=== PATIENT | female | born 1935 | race Asian ===

== ENCOUNTER 2018-03-10 18:06 | Emergency (ER) | payer SELFPAY ==
[~2018-03-10] VITALS: Ht 152.4 cm; Wt 50.8 kg
[2018-03-10 18:19] VITALS: BP 161/78
--- NOTE | 2018-03-10 18:23 | NUR ---
PT AMBULATED TO ER BED 11
[2018-03-10] MEDS ORDERED: NACL 0.9% 1,000 ML IV ONE (18:25)
--- NOTE | 2018-03-10 18:40 | NUR ---
PATIENT PRESENTS TO ED WITH COMPLAINTS OF LEFT LOWER QUADRANT PAIN X 2 DAYS. PATIENT GRASPING AT SITE. AZERI SPEAKING ONLY, FAMILY AT BEDSIDE ABLE TO TRANSLATE. SKIN IS PINK/WARM/DRY; AAOX4 WITH EVEN AND STEADY GAIT; LUNGS CLEAR BL; HR EVEN AND REGULAR; PT DENIES ANY FEVER, CP, SOB, OR COUGH AT THIS TIME; PATIENT STATES PAIN OF 9/10 AT THIS TIME; VSS; PATIENT POSITIONED FOR COMFORT; HOB ELEVATED; BEDRAILS UP X1; BED DOWN. ER MD MADE AWARE OF PT STATUS.
[2018-03-10] MEDS ORDERED: KETOROLAC 30 MG/ML VIAL IVP ONE (18:55)
[2018-03-10] MEDS ORDERED: ONDANSETRON 4 MG/2 ML VIAL IVP ONE (18:55)
[2018-03-10 19:04] LABS: BASOPHILS # (AUTO) 0.1 K/uL (0.00-0.22); BASOPHILS % (AUTO) 0.8 % (0.0-2.0); EOSINOPHILS # (AUTO) 0.1 K/uL (0-0.4); EOSINOPHILS % (AUTO) 0.6 % (0.0-4.0); HEMATOCRIT 36.1 % (36-48); HEMOGLOBIN 12.1 g/dL (12.0-16.0); LYMPHOCYTES # (AUTO) 1.1 K/uL (2.5-16.5); LYMPHOCYTES % (AUTO) 13.6 % (20.5-51.1); MEAN CORPUSCULAR HEMOGLOBIN 29 pg (27-31); MEAN CORPUSCULAR HGB CONC 34 g/dL (33-37); MEAN CORPUSCULAR VOLUME 86.7 fL (80-94); MONOCYTES # (AUTO) 0.3 K/uL (0.8-1.0); MONOCYTES % (AUTO) 3.5 % (1.7-9.3); NEUTROPHILS # (AUTO) 6.9 K/uL (1.8-7.7); NEUTROPHILS % (AUTO) 81.5 % (42.2-75.2); PLATELET COUNT (AUTO) 251 K/uL (140-450); RED BLOOD CELL COUNT(AUTO) 4.16 MIL/uL (4.20-5.40); RED CELL DISTRIBUTION WIDTH 12.9 % (11.6-13.7); WHITE BLOOD COUNT (AUTO) 8.4 K/uL (4.8-10.8)
[2018-03-10 19:06] LABS: APPEARANCE,URINE CLEAR (CLEAR); BILIRUBIN,URINE NEGATIVE (NEGATIVE); BLOOD, URINE TRACE-I (NEGATIVE); COLOR,URINE YELLOW (YELLOW); LEUKOCYTE ESTERASE ,URINE NEGATIVE (NEGATIVE); NITRITE, URINE NEGATIVE (NEGATIVE); PH,URINE 5.5 (5.0-9.0); UGLUCOSE NEGATIVE (NEGATIVE)
[2018-03-10 19:15] LABS: RBC,URINE 0-5 (RARE) /HPF (0-5); WBC,URINE 0-5 (RARE) /HPF (0-5)
[2018-03-10 19:17] LABS: ANION GAP 9.7 (8-16); CARBON DIOXIDE 26.5 mmol/L (21-32); CHLORIDE 104 mmol/L (98-107); CREATININE 1.2 mg/dL (0.6-1.3); GLUCOSE 129 mg/dL (74-106); POTASSIUM 4.2 mmol/L (3.5-5.1); SODIUM SERUM 136 mmol/L (136-145); UREA NITROGEN, BLOOD 26 mg/dL (7-18)
[2018-03-10 19:20] LABS: PROTHROMBIN TIME 10.5 secs (10.8-13.4)
[2018-03-10 19:32] LABS: ALBUMIN 4.1 g/dL (3.4-5.0); ASPARTATE AMINOTRANSFERASE 14 U/L (15-37); TOTAL BILIRUBIN 0.3 mg/dL (0.0-1.0)
--- NOTE | 2018-03-10 19:37 | NUR ---
Dr. Portillo evaluating patient at bedside.
[2018-03-10] MEDS ORDERED: TAMSULOSIN 0.4 MG CAP PO ONE (20:15)
--- NOTE | 2018-03-10 20:56 | NUR ---
Patient discharged with v/s stable. Written and verbal after care instructions given and explained. Patient alert, oriented and verbalized understanding of instructions. Ambulatory with steady gait. All questions addressed prior to discharge. ID band removed. Patient advised to follow up with PMD. Rx of tramadol, tamulosin given. Patient educated on indication of medication including possible reaction and side effects. Opportunity to ask questions provided and answered.
[2018-03-10 20:57] VITALS: BP 124/56
== END 2018-03-10 20:56 | disposition home or self-care (01) ==
LOC: MED 18:06
DX: N20.0 Calculus of kidney (principal); E86.0 Dehydration; R79.89 Other specified abnormal findings of blood chemistry; Z95.0 Presence of cardiac pacemaker
CPT/HCPCS: 36415; 71045; 74176; 80053; 81001; 81002; 83605; 83880; 84484; 85025; 85610; 85730; 87040; 87086; 93005; 96361; 96374; 96375; 99285; J1885; J2405; J7030; Q0092

== ENCOUNTER 2018-07-17 17:46 | Inpatient (IN) | payer MEDICAID ==
[~2018-07-17] VITALS: Ht 152.4 cm; Wt 49.9 kg
[2018-07-17 17:52] VITALS: BP 120/70
--- NOTE | 2018-07-17 17:54 | NUR ---
PT TRIAGED AND SENT TO ER LOBBY
--- NOTE | 2018-07-17 19:52 | NUR ---
PATIENT PRESENTS TO ED WITH C/O RECTAL PAIN UPON TRYING TO HAVE BOWL MOVEMENT SINCE THIS AM. PT DENIES ANY BLOOD IN STOOL. PAIN SINCE THIS AM. LAST NORMAL BOWL MOVEMENT YESTERDAY. PT DENIES N/V/D; SKIN IS PINK/WARM/DRY; AAOX4 WITH EVEN AND STEADY GAIT; LUNGS CLEAR BL; HR EVEN AND REGULAR; PT DENIES ANY FEVER, CP, SOB, OR COUGH AT THIS TIME; PATIENT STATES PAIN OF 8/10 AT THIS TIME; VSS; PATIENT POSITIONED FOR COMFORT; HOB ELEVATED; BEDRAILS UP X2; BED DOWN. ER MD MADE AWARE OF PT STATUS.
--- NOTE | 2018-07-17 19:52 | NUR ---
PT AMBULATED TO BED 7
--- NOTE | 2018-07-17 19:52 | NUR ---
Note undone in EDM - 07/17/18 at 2024 by JESUS PATIENT PRESENTS TO ED WITH C/O SACRAL PAIN, S/P FALL. PT DENIES N/V/D; SKIN IS PINK/WARM/DRY; AAOX4 WITH EVEN AND STEADY GAIT; LUNGS CLEAR BL; HR EVEN AND REGULAR; PATIENT STATES PAIN OF 10/10 AT THIS TIME; VSS; PATIENT POSITIONED FOR COMFORT; HOB ELEVATED; BEDRAILS UP X2; BED DOWN. ER MADE AWARE OF PT STATUS.
--- NOTE | 2018-07-17 20:49 | NUR ---
Dr. Frias evaluating patient at bedside.
--- NOTE | 2018-07-17 20:50 | NUR ---
Female System Support Technician accompanied female patient for Rectal Exam.
--- NOTE | 2018-07-17 21:12 | NUR ---
PT UNABLE TO VOID AT THIS TIME.
--- NOTE | 2018-07-17 21:22 | NUR ---
PT TAKEN TO CT VIA [facility]I IN STABLE CONDITION
[2018-07-17 21:25] LABS: BASOPHILS % (AUTO) 0.1 % (0.0-2.0); HEMATOCRIT 38.1 % (36-48); HEMOGLOBIN 12.4 g/dL (12.0-16.0); LYMPHOCYTES # (AUTO) 0.9 K/uL (2.5-16.5); LYMPHOCYTES % (AUTO) 4.9 % (20.5-51.1); MEAN CORPUSCULAR HEMOGLOBIN 29 pg (27-31); MEAN CORPUSCULAR HGB CONC 33 g/dL (33-37); MEAN CORPUSCULAR VOLUME 88.8 fL (80-94); MONOCYTES # (AUTO) 0.8 K/uL (0.8-1.0); MONOCYTES % (AUTO) 4.5 % (1.7-9.3); NEUTROPHILS # (AUTO) 16.2 K/uL (1.8-7.7); NEUTROPHILS % (AUTO) 90.5 % (42.2-75.2); PLATELET COUNT (AUTO) 228 K/uL (140-450); RED BLOOD CELL COUNT(AUTO) 4.29 MIL/uL (4.20-5.40); RED CELL DISTRIBUTION WIDTH 13.1 % (11.6-13.7); WHITE BLOOD COUNT (AUTO) 17.9 K/uL (4.8-10.8)
[2018-07-17 21:35] LABS: ANION GAP 12.3 (8-16); CARBON DIOXIDE 24.4 mmol/L (21-32); CHLORIDE 104 mmol/L (98-107); CREATININE 1.1 mg/dL (0.6-1.3); GLUCOSE 141 mg/dL (74-106); POTASSIUM 4.7 mmol/L (3.5-5.1); SODIUM SERUM 136 mmol/L (136-145); UREA NITROGEN, BLOOD 21 mg/dL (7-18)
[2018-07-17 21:45] LABS: ASPARTATE AMINOTRANSFERASE 17 U/L (15-37); TOTAL BILIRUBIN 0.5 mg/dL (0.0-1.0)
[2018-07-17 21:46] LABS: ALBUMIN 3.9 g/dL (3.4-5.0)
[2018-07-17] MEDS ORDERED: HYDROcodone/APAP 10/325 MG 1 TAB TAB PO ONE (22:25)
[2018-07-17] MEDS ORDERED: HYDROcodone/APAP 10/325 MG 1 TAB TAB ONE (22:40)
[2018-07-17 22:52] LABS: APPEARANCE,URINE CLEAR (CLEAR); COLOR,URINE YELLOW (YELLOW)
[2018-07-17 22:53] LABS: BILIRUBIN,URINE NEGATIVE (NEGATIVE); BLOOD, URINE TRACE (NEGATIVE); LEUKOCYTE ESTERASE ,URINE NEGATIVE (NEGATIVE); NITRITE, URINE NEGATIVE (NEGATIVE); UGLUCOSE 1+ (NEGATIVE)
[2018-07-17 22:54] LABS: RBC,URINE 0-5 (RARE) /HPF (0-5); WBC,URINE 0-5 (RARE) /HPF (0-5)
[2018-07-18] MEDS ORDERED: NACL 0.9% 1,000 ML IV SCH ×2 (00:12→00:21)
[2018-07-18] MEDS ORDERED: VANCOMYCIN 1,000 MG in DEXTROSE 5% 250 ML IV ONE (00:15)
[2018-07-18] MEDS ORDERED: PIPERACILLIN/TAZOBACTAM 3.375 GM in DEXT 5% MINI-BAG PLUS 50 ML IV ONE (00:15)
[2018-07-18] MEDS ORDERED: metroNIDAZOLE 250 MG/NS PREMIX 50 ML IV SCH (00:15)
[2018-07-18] MEDS ORDERED: HYDROcodone/APAP 5/325 MG 1 TAB TAB PO PRN (00:25)
[2018-07-18] MEDS ORDERED: KETOROLAC 15 MG/ML VIAL IVP PRN (00:25)
[2018-07-18] MEDS ORDERED: SODIUM PHOSPHATE 118 ML ENEM RC PRN (00:25)
[2018-07-18] MEDS ORDERED: BISACODYL 10 MG SUPP RC PRN (00:25)
[2018-07-18] MEDS ORDERED: ONDANSETRON 4 MG/2 ML VIAL IVP PRN (00:25)
[2018-07-18] MEDS ORDERED: ACETAMINOPHEN 325 MG TAB PO PRN (00:25)
[2018-07-18] MEDS ORDERED: VANCOMYCIN 1,000 MG VIAL ONE (00:41)
[2018-07-18] MEDS ORDERED: PIPERACILLIN/TAZOBACTAM 3.375 GM VIAL IV ONE ×2 (00:41→06:03)
[2018-07-18] MEDS ORDERED: metroNIDAZOLE 500 MG/NS PREMIX 100 ML IV ONE (00:42)
[2018-07-18 01:06] LABS: PROTHROMBIN TIME 9.9 secs (10.8-13.4)
--- NOTE | 2018-07-18 01:15 | NUR ---
RECEIVED PT FROM ER VIA [facility] REPORT GIVEN AT BED SIDE FROM ER NURSE PT SPEAKS MANDARIN AND PT GRANDSON HELP TO TRANSLATE AND GIVE PT INFORMATION PT IS AAOX4 AMBULATORY IV ON LEFT AC GAUGE # 20 INFUSING WELL, , ON TELEMETRY SR, PT HAS A PACEMAKER ON LEFT UPPER CHEST, SKIN IS INTACT NOT DISTRESS NOTED AT THIS TIME AND PT DENIES ANY PAIN AT THIS TIME PT AND FAMILY ARE ORIENTED TO THE FLOOR CALL LIGHT WITHIN REACH , MRSA SWAB NARES PROTOCOL DONE AND SENT TO LAB
--- NOTE | 2018-07-18 01:15 | NUR ---
Patient will be admitted to care of DR ROCHA. Admited to TELE. Will go to room 120B. Belongings list completed. Report to TREVIN SCHRADER.
[2018-07-18 01:17] LABS: MAGNESIUM 1.9 mg/dL (1.8-2.4); PHOSPHORUS 3.1 mg/dL (2.5-4.9); THYROID STIMULATING HORMONE 0.34 uIU/mL (0.34-3.74)
[2018-07-18 01:30] VITALS: BP 108/54
--- NOTE | 2018-07-18 02:00 | NUR ---
PT IS ASSISTED TO THE RESTROOM VOIDING WELL AND PT HAS A MODERATE BM SEMILIQUID BROWNISH COLOR, FAMILY AND PT REFUSED TO BE GIVEN FLEET ENEMA ORDER DENIES ANY PAIN AT THIS TIME.
--- NOTE | 2018-07-18 03:30 | NUR ---
PT SLEEPING WELL ON TELEMETRY SR IV O;N LEFT AC INFUSING WELL RELATIVE AT BED SIDE
[2018-07-18] MEDS ORDERED: DEXT 5% / NACL 0.45% 1,000 ML IV SCH (03:35)
[2018-07-18 04:00] VITALS: BP 94/48
--- NOTE | 2018-07-18 04:30 | NUR ---
SPONGE BATH GIVEN LINEN CHANGED ON TELE SR PT HAD 2 MODERATED BM SEMILIQUIDS NOT DISTRESS NOTED
[2018-07-18] MEDS: PIPER/TAZO 3.375GM/D5W PREMIX 50 ML IV SCH ×4 (06:09→23:22)
--- NOTE | 2018-07-18 07:02 | NUR ---
AFTER PAIN MEDIC GIVEN PT VERBALIZED TO FEEL BETTER GETTING SLEEP
--- NOTE | 2018-07-18 07:15 | NUR ---
PT IS ENDORSED TO KAMRON ZHONG FOR CONTINUITY OF CARE
--- NOTE | 2018-07-18 07:16 | NUR ---
RECEIVED BEDSIDE REPORT FROM NETWORKING TECHNOLOGY INSTRUCTOR RN. MANDARIN SPEAKER, AOX4. AMBULATORY WITHOUT ASSIST. GRANDSON AT BEDSIDE. LUNGS CTA. HEART RHYTHM REGULAR. PT STATES SHE "GENERALLY FEELS WELL BUT HAVE PAIN AT THE ANUS". PT REPORTS THAT PAIN IS TOLERABLE 2/10 PAIN PERIANAL PAIN WHEN RESTING IN BED NOW. EXPLAINED THAT WE WILL ADMIN STOOL SOFTENERS AND HAVE GI CONSULT. PT VERBALIZED UNDERSTANDING AND STATES THAT HER STOOLS SINCE ADMISSIONS HAVE BEEN SOFT. IV SITE PATENT AND ASYMPTOMATIC, INFUSING IVF PER MD ORDERS. PT HAS A PACEMAKER ON LEFT UPPER CHEST, ON TELE MONITORING.
[2018-07-18 08:00] VITALS: BP 137/50
[2018-07-18] MEDS: DOCUSATE SODIUM 100 MG GELCAP PO SCH ×2 (09:05→20:23)
[2018-07-18] MEDS: LACTOBACILLUS RHAMNOSUS GG 1 EACH CAP PO SCH (09:05)
--- NOTE | 2018-07-18 09:58 | NUR ---
DR. ANSARI AT BEDSIDE TO EXAMINE PT. EXPLAINED POC TO PATIENT AND ANSWERED ALL OF PATIENT'S QUESTIONS.
--- NOTE | 2018-07-18 10:41 | NUR ---
OFFERED AND EXPLAINED SITZ BATH TO PATIENT AND GRANDDAUGHTER AT BEDSIDE. PATIENT WISHES TO REST NOW AND GET THE SITZ BATH AT LATER TIME. WILL OFFER AGAIN TO PATIENT AT LATER TIME.
[2018-07-18 12:00] VITALS: BP 114/53
[2018-07-18] MEDS ORDERED: BISACODYL 10 MG SUPP RC SCH (12:30)
[2018-07-18] MEDS: NACL 0.9% 1,000 ML IV SCH (13:28)
--- NOTE | 2018-07-18 13:29 | NUR ---
EXPLAINED AND ADMINISTERED SUPPOSITORY PER DR. [place]. PT VERBALIZED COMPLETE UNDERSTANDING. PT STATES SHE IS AGREEABLE TO TRYING SITZ BATH AFTER BOWEL MOVEMENT. Addendum: 07/18/18 at 1337 by Gabriella Moreira Meng, RN PT DENIES PAIN AND DISCOMFORT AT THE RECTUM AT THIS TIME.
--- NOTE | 2018-07-18 15:10 | NUR ---
NOTIFIED DR. HENDERSON THAT PT HAS INVERTED T ON TELE MONITOR. Addendum: 07/18/18 at 1512 by Gabriella Moreira Meng, RN PT DENIES CHEST PAIN/DISCOMFORT. VITALS STABLE.
[2018-07-18 16:00] VITALS: BP 117/53
--- NOTE | 2018-07-18 17:09 | NUR ---
HELPED PATIENT TO THE BATHROOM. GAIT EVEN AND STEADY, WITHOUT ASSIST. PT HAD SMALL AMOUNT OF LOOSE, WATERY BM. WILL CONTINUE TO MONITOR. OFFERED SITZ BATH AGAIN TO PATIENT BUT PT STATES HER RECTUM "FEELS FINE" DOES NOT WANT/NEED SITZ BATH AT THIS TIME.
--- NOTE | 2018-07-18 19:24 | NUR ---
ENDORSED POC TO CANTEEN ATTENDANT RN. PT IN STABLE CONDITION.
--- NOTE | 2018-07-18 19:25 | NUR ---
RECEIVED BEDSIDE REPORT FROM DAY SHIFT NURSE. PT A&O X4. FAMILY AT BEDSIDE. PT MANDARIN SPEAKING ONLY. PT ON ROOM AIR, RESPIRATIONS ARE EQUAL AND UNLABORED. IV ON L AC 20 G INFUSING NS AT 20ML/HR. PT IS AMBULATORY. PT ON FALL PRECAUTIONS. BED ALARM ON AND LOWEST POSITION. SKIN INTACT. PLAN OF CARE DISCUSSED. CALL LIGHT WITHIN REACH.
[2018-07-18 19:42] VITALS: BP 104/47
--- NOTE | 2018-07-18 20:43 | NUR ---
DUE MEDICATIONS GIVEN PT TOLERATED WELL. VITAL SIGNS ARE WITHIN NORMAL LIMITS. CALL LIGHT WITHIN REACH. FAMILY MEMBERS AT BEDSIDE.
[2018-07-19] VITALS: BP 96/48
--- NOTE | 2018-07-19 00:32 | NUR ---
VITAL SIGNS ARE WITHIN NORMAL LIMITS. PT HAD SMALL LIQUID LIGHT BROWN STOOL. FAMILY AT BEDSIDE. CALL LIGHT WITHIN REACH
[2018-07-19 04:00] VITALS: BP 110/56
--- NOTE | 2018-07-19 04:00 | NUR ---
VITAL SIGNS ARE WITHIN NORMAL LIMITS. SAFETY MEASURES IN PLACE. CALL LIGHT WITHIN REACH.
[2018-07-19] MEDS: PIPER/TAZO 3.375GM/D5W PREMIX 50 ML IV SCH ×2 (05:00→11:30)
[2018-07-19] MEDS ORDERED: SHARK OIL/PHENYLEPHRINE 60 GM TUBE TP PRN (06:50)
[2018-07-19] MEDS ORDERED: AMOX-999 PO (06:55)
[2018-07-19] MEDS ORDERED: LACT10CA1 PO (06:58)
--- NOTE | 2018-07-19 07:16 | NUR ---
ENDORSED PT TO DAY SHIFT NURSE. PT STABLE CONDITION.
--- NOTE | 2018-07-19 07:17 | NUR ---
RECEIVED REPORT FROM THE NETWORK DIRECTOR NURSE AT BEDSIDE FOR CONTINUITY OF CARE. PT IS AWAKE AND ORIENTED X 4. INTRODUCED MYSELF AND UPDATED THE BOARDS. PT STATES SHE IS FEELING MUCH BETTER. NO MORE PAIN IN THE RECTUM. PT IS ON TELE, PACED RHYTHM, AMBULATES WELL-STEADY GAIT, SKIN INTACT, AND LBM WAS THIS MORNING, 3 SM BM DURING LAST SHIFT, LIQUIDY. IV ON L AC 20G, NS AT 20ML. PER NETWORK DIRECTOR NURSE, PT IS AWAITING DR. CANO FOR EPISODES OF INVERTED T WAVES. V/S WITHIN NORMAL RANGE. NO SIGNS OF DISTRESS OR COMPLAINTS OF PAIN. WILL CONTINUE TO MONITOR PT.
[2018-07-19 08:00] VITALS: BP 113/60
--- NOTE | 2018-07-19 08:53 | NUR ---
PATIENT HAS BEEN SCREENED AND CATEGORIZED HIGH NUTRITION RISK. PATIENT WILL BE SEEN WITHIN 1-2 DAYS OF ADMISSION. 07/19/[address]
[2018-07-19] MEDS: DOCUSATE SODIUM 100 MG GELCAP PO SCH (08:54)
[2018-07-19] MEDS: LACTOBACILLUS RHAMNOSUS GG 1 EACH CAP PO SCH (08:54)
--- NOTE | 2018-07-19 08:56 | NUR ---
ADMINISTERED MORNING MEDS. PT TOLERATED WELL. NO COMPLAINTS. REFUSED SITZ BATH FOR THIS MORNING. NO RECTAL PAIN. FAMILY AT BEDSIDE. ATE 90% OF BREAKFAST. WILL CONTINUE TO MONITOR PT.
[2018-07-19] MEDS: NACL 0.9% 1,000 ML IV SCH (09:45)
--- NOTE | 2018-07-19 09:48 | NUR ---
PT RESTING COMFORTABLY. NO SIGNS OF DISTRESS. NO COMPLAINTS. FAMILY MEMBER AT BEDSIDE. WILL CONTINUE TO MONITOR PT.
[2018-07-19 10:16] LABS: BASOPHILS % (AUTO) 0.3 % (0.0-2.0); EOSINOPHILS # (AUTO) 0.2 K/uL (0-0.4); EOSINOPHILS % (AUTO) 1.7 % (0.0-4.0); HEMATOCRIT 35.1 % (36-48); HEMOGLOBIN 11.6 g/dL (12.0-16.0); LYMPHOCYTES # (AUTO) 1.4 K/uL (2.5-16.5); LYMPHOCYTES % (AUTO) 14.9 % (20.5-51.1); MEAN CORPUSCULAR HEMOGLOBIN 30 pg (27-31); MEAN CORPUSCULAR HGB CONC 33 g/dL (33-37); MEAN CORPUSCULAR VOLUME 89.7 fL (80-94); MONOCYTES # (AUTO) 0.6 K/uL (0.8-1.0); MONOCYTES % (AUTO) 6.4 % (1.7-9.3); NEUTROPHILS # (AUTO) 7.4 K/uL (1.8-7.7); NEUTROPHILS % (AUTO) 76.7 % (42.2-75.2); PLATELET COUNT (AUTO) 211 K/uL (140-450); RED BLOOD CELL COUNT(AUTO) 3.92 MIL/uL (4.20-5.40); RED CELL DISTRIBUTION WIDTH 13.4 % (11.6-13.7); WHITE BLOOD COUNT (AUTO) 9.6 K/uL (4.8-10.8)
[2018-07-19 10:24] LABS: ANION GAP 10.6 (8-16); CARBON DIOXIDE 27.2 mmol/L (21-32); CHLORIDE 107 mmol/L (98-107); CREATININE 1.1 mg/dL (0.6-1.3); GLUCOSE 115 mg/dL (74-106); POTASSIUM 3.8 mmol/L (3.5-5.1); SODIUM SERUM 141 mmol/L (136-145); UREA NITROGEN, BLOOD 10 mg/dL (7-18)
[2018-07-19 10:30] LABS: CHOL/HDL RATIO 1.9 (1-4.5); MAGNESIUM 2.2 mg/dL (1.8-2.4); PHOSPHORUS 3.2 mg/dL (2.5-4.9)
--- NOTE | 2018-07-19 11:10 | NUR ---
P/T HERE TO WORK WITH PT. Addendum: 07/19/18 at 1110 by Nessa Martinez RN DISREGARD. IRAIS PT. HC
--- NOTE | 2018-07-19 11:32 | NUR ---
ADMINISTERED ZOSYN, PT TOLERATING WELL. WILL CONTINUE TO MONITOR PT.
[2018-07-19 12:00] VITALS: BP 116/72
[2018-07-19] MEDS ORDERED: PNEUMOCOCCAL VACCINE 23 MCG/0.5 ML VIAL IMVAC SCH (12:05)
[2018-07-19] MEDS ORDERED: INFLUENZA VIRUS VACCINE QUAD 0.5 ML SYR IMVAC PRN (12:05)
--- NOTE | 2018-07-19 13:14 | NUR ---
PER FAMILY MEMBER, PT HAD A BM THIS MORNING AROUND 0830. NOTIFIED .
[2018-07-19] MEDS ORDERED: SENN-73 PO (13:29)
[2018-07-19] MEDS ORDERED: DOCU-299 PO ×2 (13:29→13:43)
--- NOTE | 2018-07-19 13:32 | NUR ---
PER FAMILY, PT HAD HER PNEUMONIA VACC ON 02/2018. Addendum: 07/19/18 at 1337 by Nessa Martinez RN ADMINISTERED FLU VACC ONLY ON R DELTOID. PT TOLERATED WELL.
--- NOTE | 2018-07-19 13:34 | NUR ---
PER FAMILY MEMBER, PT HAD 3 BMS THAT WAS FORMED AND AT LEAST 6 TIMES OF SMALL LIQUID STOOL. BEEN GOING TO THE BATHROOM ABOUT EVERY 30 MIN.
[2018-07-19] MEDS ORDERED: ACET-2619 PO (13:42)
[2018-07-19] MEDS ORDERED: SENN-89 PO (13:43)
--- NOTE | 2018-07-19 14:15 | NUR ---
CALLED [employer] TO GET A MANDARIN STEEL FABRICATOR. OTIS #[id number]. GAVE COMPLETE D/C INSTRUCTIONS, INCLUDING F/U APPT INFO AND RX INFO. PT AND FAMILY MEMBER VERBALIZED UNDERSTANDING. REMOVED IV AND ALL ID BANDS. REMOVED TELE MONITOR. PT GOT DRESSED. MADE LAST TRIP TO THE BATHROOM. WILL CALL PHYSICAL THERAPY INSTRUCTOR TO GET WHEELCHAIR READY. PT IS IN STABLE CONDITION.
--- NOTE | 2018-07-19 14:25 | NUR ---
RESTAURANT HOSTESS PUSHED PT OUT IN A WHEELCHAIR ACCOMPANIED BY FAMILY MEMBER W/ ALL PT'S BELONGINGS TO THE LOBBY. PT IS IN STABLE CONDITION.
== END 2018-07-19 14:25 | disposition home or self-care (01) | DRG 254 ==
LOC: MED 17:46 → MTU 07-18 00:17
PROVIDERS: ADMIT General Practice; ATTEND General Practice
PROC: 3E02340 Introduction of Influenza Vaccine into Muscle, Percutaneous Approach (ICD-10-PCS; principal; 2018-07-19)
PROC: 3E0234Z Introduction of Serum, Toxoid and Vaccine into Muscle, Percutaneous Approach (ICD-10-PCS; 2018-07-19)
DX: K62.89 Other specified diseases of anus and rectum (principal); I50.9 Heart failure, unspecified; R31.9 Hematuria, unspecified; K60.2 Anal fissure, unspecified; K59.00 Constipation, unspecified; D72.829 Elevated white blood cell count, unspecified; Z95.0 Presence of cardiac pacemaker; R73.03 Prediabetes; Z23 Encounter for immunization
CPT/HCPCS: 36415; 71045; 80048; 80053; 81001; 83036; 83605; 83735; 84100; 84439; 84443; 85025; 85610; 85730; 87040; 87081; 87086; 90658; 90732; 93005; 96365; 96367; 99285; J2543; J3370; J3490; J7030; J7060

== ENCOUNTER 2020-06-26 11:06 | Observation (INO) | payer OTHER, SELFPAY ==
[~2020-06-26] VITALS: Ht 157.5 cm; Wt 44.9 kg
[~2020-06-26 11:06] MED LIST: ATOR10TA PO; ISOS20TA13 PO
[2020-06-26 11:20] VITALS: BP 107/58
--- NOTE | 2020-06-26 11:28 | NUR ---
Patient to bed 8. RN evaluating patient at bedside.
--- NOTE | 2020-06-26 11:47 | NUR ---
Dr. Dey is evaluating the patient at bedside.
--- NOTE | 2020-06-26 11:52 | NUR ---
airbrush artist technical at bedside.
[2020-06-26] MEDS ORDERED: ESCI5TAB PO (12:05)
[2020-06-26] MEDS ORDERED: ASPI-1205 PO (12:05)
--- NOTE | 2020-06-26 12:30 | NUR ---
PT UNABLE TO PROVIDE URINE AT THIS TIME
--- NOTE | 2020-06-26 12:30 | NUR ---
85 Y/O FEMALE PRESENTS WITH SOB X1 MONTH. PT WAS RECENTLY ADMITTED TO THE HOSPITAL (06/16/20) FOR THORACENTESIS FOR RIGHT PLEURAL EFFUSION, IN WHICH THEY DRAINED 1500Ml OF FLUID. PT STATES SHE IS STILL EXPERIENCING EXERTIONAL SOB AND SLIGHT RIGHT LUNG PAIN. DIMINISHED BREATH SOUNDS ON RIGHT LUNG/ WHEEZING PRESENT UPON EXERTION. PT DENIES ANY FEVER/CHILLS/N/V/D. MILD COUGH PRESENT WITH MINIMAL SPUTUM. AAOX4, GRANDSON AT BEDSIDE FOR TRANSLATION. AMBULATORY WITH STEADY GAIT PMH: CHF, PACEMAKER NKDA
[2020-06-26 12:36] LABS: BASOPHILS # (AUTO) 0.2 K/uL (0.00-0.22); BASOPHILS % (AUTO) 2.1 % (0.0-2.0); EOSINOPHILS # (AUTO) 0.2 K/uL (0-0.4); EOSINOPHILS % (AUTO) 3.1 % (0.0-4.0); HEMATOCRIT 37.9 % (36-48); HEMOGLOBIN 12.7 g/dL (12.0-16.0); LYMPHOCYTES % (AUTO) 13.3 % (20.5-51.1); MEAN CORPUSCULAR HEMOGLOBIN 30 pg (27-31); MEAN CORPUSCULAR HGB CONC 34 g/dL (33-37); MEAN CORPUSCULAR VOLUME 88.2 fL (80-94); MONOCYTES # (AUTO) 0.6 K/uL (0.8-1.0); MONOCYTES % (AUTO) 8.7 % (1.7-9.3); NEUTROPHILS # (AUTO) 5.3 K/uL (1.8-7.7); NEUTROPHILS % (AUTO) 72.8 % (42.2-75.2); PLATELET COUNT (AUTO) 366 K/uL (140-450); RED CELL DISTRIBUTION WIDTH 12.9 % (11.6-13.7); WHITE BLOOD COUNT (AUTO) 7.3 K/uL (4.8-10.8)
[2020-06-26 13:24] LABS: ANION GAP 18.2 (8-16); CARBON DIOXIDE 23.8 mmol/L (21-32); CHLORIDE 101 mmol/L (98-107); GLUCOSE 112 mg/dL (74-106); SODIUM SERUM 139 mmol/L (136-145); UREA NITROGEN, BLOOD 12 mg/dL (7-18)
[2020-06-26 13:29] LABS: PROTHROMBIN TIME 9.5 secs (10.8-13.4)
[2020-06-26 13:30] LABS: ALBUMIN 3.2 g/dL (3.4-5.0); ASPARTATE AMINOTRANSFERASE 24 U/L (15-37); TOTAL BILIRUBIN 0.3 mg/dL (0.0-1.0)
[2020-06-26] MEDS ORDERED: ASPIRIN 81 MG TAB.CHEW PO ONE (13:45)
--- NOTE | 2020-06-26 13:50 | NUR ---
Patient appears to be resting comfortably in bed. Vital Signs within normal limits. Respirations even and unlabored.
[2020-06-26] MEDS ORDERED: HYDROcodone/APAP 5/325 MG 1 TAB TAB PO PRN (15:20)
[2020-06-26] MEDS ORDERED: ACETAMINOPHEN 325 MG TAB PO PRN (15:20)
[2020-06-26] MEDS ORDERED: MORPHINE SULFATE 4 MG/ML SYR IVP PRN (15:20)
[2020-06-26] MEDS: LEVOFLOXACIN 500 MG/D5W PREMIX 100 ML IV SCH (15:50)
[2020-06-26 16:09] LABS: APPEARANCE,URINE CLEAR (CLEAR); BILIRUBIN,URINE NEGATIVE (NEGATIVE); BLOOD, URINE NEGATIVE (NEGATIVE); COLOR,URINE YELLOW (YELLOW); LEUKOCYTE ESTERASE ,URINE NEGATIVE (NEGATIVE); NITRITE, URINE NEGATIVE (NEGATIVE); PH,URINE 6.5 (5.0-9.0); UGLUCOSE NEGATIVE (NEGATIVE)
--- NOTE | 2020-06-26 16:10 | NUR ---
RECEIVED REPORT FROM ER NURSE FOR CONTINUITY OF CARE. PATIENT IS AAOX4, T[place], WITH CHIEF COMPLAINT SOB DUE TO RIGHT PLEURAL EFFUSION. O2 SAT 96% IN RA. HX OF PACEMAKER. SOB ON MINIMAL EXERTION. IV SITE RIGHT AC, DENIES PAIN. ADMISSION PROTOCOL FOLLOWED. SAFETY MEASURES IN PLACE, WILL CONTINUE TO MONITOR.
--- NOTE | 2020-06-26 16:20 | NUR ---
Patient will be admitted to care of . Admited to TELE. Will go to room 121B. Belongings list completed. Report to RAMSES ZHONG.
--- NOTE | 2020-06-26 19:35 | NUR ---
ENDORSED PATIENT TO LOCOMOTIVE OPERATOR HELPER RN FOR CONTINUITY OF CARE.
--- NOTE | 2020-06-26 19:36 | NUR ---
RECEIVED PT IN STABLE CONDITION [facility] NURSE FOR CONTINUITY OF CARE. MED SURG. AWAKE,ALERT AND ORIENTED X4. WITH NO C/O ANY DISCOMFORT NOR PAIN NOTED. NO SOB AT THIS TIME. WITH HL ON THE RT AC G#20 ;CLEAR AND PATENT. BEDREST. FREQ ROUNDS NEEDED. SIDE RIALS UP X2. CALL LIGTH PLACED WITHIN REACH. WILL CONTINUE TO MONITOR.
[2020-06-26 20:00] VITALS: BP 113/57
--- NOTE | 2020-06-26 21:53 | NUR ---
PT FOR CT CHEST WITHOUT CONTRAST. PICKED UP BY WHEELCHAIR BY TECH.
--- NOTE | 2020-06-26 22:04 | NUR ---
PT BACK FROM CT . WILL FOLLOW UP RESULT.
[2020-06-27] VITALS: BP 133/70
--- NOTE | 2020-06-27 00:30 | NUR ---
CHECKED ON . SLEEPING WELL AT THIS TIME. NO S/S OF ANY DISTRESS NOTED.
--- NOTE | 2020-06-27 02:00 | NUR ---
SLEEPING WELL AT THIS TIME. NO S/S OF ANY DISTRESS NOTED.
[2020-06-27 04:00] VITALS: BP 132/70
--- NOTE | 2020-06-27 04:00 | NUR ---
NO SOB NOTED DURING THE NIGHT.
[2020-06-27 05:27] LABS: BASOPHILS # (AUTO) 0.1 K/uL (0.00-0.22); BASOPHILS % (AUTO) 1.1 % (0.0-2.0); EOSINOPHILS # (AUTO) 0.4 K/uL (0-0.4); EOSINOPHILS % (AUTO) 4.9 % (0.0-4.0); HEMATOCRIT 36.4 % (36-48); HEMOGLOBIN 12.2 g/dL (12.0-16.0); LYMPHOCYTES # (AUTO) 1.7 K/uL (2.5-16.5); LYMPHOCYTES % (AUTO) 22.1 % (20.5-51.1); MEAN CORPUSCULAR HEMOGLOBIN 30 pg (27-31); MEAN CORPUSCULAR HGB CONC 33 g/dL (33-37); MEAN CORPUSCULAR VOLUME 88.4 fL (80-94); MONOCYTES # (AUTO) 0.7 K/uL (0.8-1.0); MONOCYTES % (AUTO) 9.4 % (1.7-9.3); NEUTROPHILS # (AUTO) 4.7 K/uL (1.8-7.7); NEUTROPHILS % (AUTO) 62.5 % (42.2-75.2); PLATELET COUNT (AUTO) 368 K/uL (140-450); RED BLOOD CELL COUNT(AUTO) 4.12 MIL/uL (4.20-5.40); RED CELL DISTRIBUTION WIDTH 13.2 % (11.6-13.7); WHITE BLOOD COUNT (AUTO) 7.5 K/uL (4.8-10.8)
[2020-06-27 05:48] LABS: PROTHROMBIN TIME 10.1 secs (10.8-13.4)
[2020-06-27 05:59] LABS: ALBUMIN 2.8 g/dL (3.4-5.0); ANION GAP 10.2 (8-16); ASPARTATE AMINOTRANSFERASE 20 U/L (15-37); CARBON DIOXIDE 26.4 mmol/L (21-32); CHLORIDE 104 mmol/L (98-107); GLUCOSE 95 mg/dL (74-106); POTASSIUM 3.6 mmol/L (3.5-5.1); SODIUM SERUM 137 mmol/L (136-145); TOTAL BILIRUBIN 0.4 mg/dL (0.0-1.0); UREA NITROGEN, BLOOD 10 mg/dL (7-18)
--- NOTE | 2020-06-27 07:35 | NUR ---
ENDORSED PT IN STABLE CONDITION TO AM NURSE.
--- NOTE | 2020-06-27 07:36 | NUR ---
Received report from assembler nurse Preeti. Pt resting in bed, aox4- speaks Mandarin, on room air, with iv site right AV #20g/sl. No s/s or respiratory distress or discomfort noted at this time. call light within reach. will continue to monitor.
[2020-06-27 08:00] VITALS: BP 137/67
[2020-06-27] MEDS ORDERED: ENOXAPARIN 40 MG/0.4 ML SYR SUBQ SCH (09:00)
--- NOTE | 2020-06-27 10:01 | NUR ---
SOCIAL WORK NOTE: Patient's Orientation Unable To Assess Information Provided By RAVI GOOD - GRANDTIERRA Comments SW WAS UNABLE TO MEET PATIENT AT BEDSIDE TO COMPLETE ASSESSMENT. SW COMPLETED ASSESSMENT WITH PATIENT'S GRANDSON, RAVI. Hiv Counselor, Realtionship and Phone Number JAZIEL GOOD [phone] Healthcare Power of Timber Harvester Operator No Does Patient Have a POLST No Identifying Problems No Social Work Triggers Is A Social Work Consult Needed No Mandate Report Filed No Explanation Of Identifying Problems PATIENT IS AN 85-YEAR-OLD FEMALE ADMITTED FOR RIGHT RECURRENT PLEURAL EFFUSION. PATIENT HAS PMHX OF PACE MAKER. PER GRANDSON, PATIENT HAS NO HISTORY OF SUBSTANCE ABUSE OR MENTAL HEALTH. Admitted From Home Pre-Admission Level Of Functioning Status Assist With ADL Level Of Functioning Comment PER GRANDSON, PATIENT REQUIRES ASSISTANCE PREPARING MEALS. Prior Resources/Services Used In Last 12 Months No Prior Resources Used Prior DME No Prior DME Used Dialysis Comments GRANDSON REPORTED NO DIALYSIS FOR PATIENT. Living Situation Lives With Family House Other Living Situation/Comment GRANDSON STATED THAT PATIENT LIVES WITH DAUGHTER AND GRANDSON. Patient Had Caregiver Declined Home Support CG/Fam Able To Meet Need Financial Issues No Known Financial Issue Referral To The Financial Counselor Needed No Factors/Needs No D/C Needs Identified Explanation And Or Other Factors Affecting/Possible DC Needs PATIENT'S GRANDSON STATED HE WOULD PICK PATIENT UP AT DISCHARGE. Pt/Rep Participated In Discharge Plan Yes Patient/Family Agress With Discharge Plan Yes Discharge Plan Comments TENTATIVE DISCHARGE PLAN IS FOR PATIENT TO RETURN HOME. DC Plan Status Initiated
--- NOTE | 2020-06-27 10:04 | NUR ---
SCHEDULED MEDICATION LOVENOX GIVEN AND TOLERATED WELL. CALL LIGHT WITHIN REACH. SAFETY PRECAUTIONS IN PLACE. NO S/S OF RESPIRATORY DISTRESS OR DISCOMFORT NOTED AT THIS TIME. WILL CONTINUE TO MONITOR.
[2020-06-27 12:00] VITALS: BP 149/67
--- NOTE | 2020-06-27 12:00 | NUR ---
PT RESTING IN BED. CALL LIGHT WITHIN REACH. SAFETY PRECAUTIONS IN PLACE. NO S/S OF RESPIRATORY DISTRESS OR DISCOMFORT NOTED AT THIS TIME. WILL CONTINUE TO MONITOR.
--- NOTE | 2020-06-27 13:48 | NUR ---
DISCHARGE PLANNING: DR. YBARRA MADE AWARE THAT PATIENT IS ON OBS. INFORMED HIM IF HE PLANS TO KEEP THE PATIENT AFTER THORACENTESIS, IF HE CAN FLIP IT TO IN PATIENT. HE STATED PATIENT MIGHT BE DC'D AND JUST OUT PATIENT FOLLOW FOR LIVER LESION.
--- NOTE | 2020-06-27 14:12 | NUR ---
06/27/20 RD INITIAL ASSESSMENT COMPLETED PLEASE REFER TO NUTRITION ASSESSMENT UNDER CARE ACTIVITY FOR ESTIMATED NUTRITIONAL NEEDS. 1. RECOMMEND MECHANICAL SOFT CARDIAC DIET TOLERATED 2. RECOMMEND ENSURE BID 3. ENCOURAGE PO INTAKE 4. RD TO FOLLOW-UP 3-5 DAYS, MODERATE RISK KANIKA BARKSDALE, RD
--- NOTE | 2020-06-27 14:34 | NUR ---
PT SIGNED THORACENTESIS CONSENT. DAY SHIFT NURSE CELINA TRANSLATED IN MANDARIN. PT VERBALIZED UNDERSTANDING. CALL LIGHT WITHIN REACH. SAFETY PRECAUTIONS IN PLACE. NO S/S OF RESPIRATORY DISTRESS OR DISCOMFORT NOTED AT THIS TIME. WILL CONTINUE TO MONITOR.
--- NOTE | 2020-06-27 15:00 | NUR ---
HOLD LOVENOX UNTIL AFTER THORACENTESIS SCHEDULED 06/28/2020
[2020-06-27] MEDS: LEVOFLOXACIN 500 MG/D5W PREMIX 100 ML IV SCH (15:10)
--- NOTE | 2020-06-27 15:10 | NUR ---
SCHEDULED MEDICATION LEVAQUIN GIVEN AND TOLERATED WELL. CALL LIGHT WITHIN REACH. SAFETY PRECAUTIONS IN PLACE. NO S/S OF RESPIRATORY DISTRESS OR DISCOMFORT NOTED AT THIS TIME. WILL CONTINUE TO MONITOR.
[2020-06-27 16:00] VITALS: BP 151/53
--- NOTE | 2020-06-27 17:00 | NUR ---
PT RESTING IN BED. NO S/S OF RESPIRATORY DISTRESS OR DISCOMFORT NOTED AT THIS TIME. WILL CONTINUE TO MONITOR.
--- NOTE | 2020-06-27 19:00 | NUR ---
ENDORSE PT CARE TO MANAGER SOLAR NURSE PA-RN FOR CONTINUITY OF CARE. PT IN STABLE CONDITIONS AT THIS TIME.
--- NOTE | 2020-06-27 19:20 | NUR ---
RECEIVED CONTINUITY OF CARE FROM AM NURSE. PT IS SITTING AND HAD CALLED FAMILY TO BE ON THE PHONE. THE FAMILY MEMBER ASSISTED WITH COMMUNICATION, PT WAS BEING ORIENTED TO STAFF AND CALL LIGHT. PT IS A/OX4, MANDARIN SPEAKING ONLY. PT IS BREATHING SPONTANEOUSLY ON ROOM AIR. BILATERAL BRACHIAL PULSES NOTED, ACTIVE BOWEL TONES NOTED. SKIN IS WARM, DRY, INTACT. IV IS PATENT, ASYMPTOMATIC, INTACT. CALL LIGHT IS WITHIN REACH. BED IS IN LOW POSITION. WILL CONTINUE TO MONITOR.
[2020-06-27 20:00] VITALS: BP 139/62
--- NOTE | 2020-06-27 20:28 | NUR ---
LATE ENTRY--- S/W KIYA ZHONG, LEVAQUIN 500MG IVPB STARTED AT 1410 AND ENDED AT 1550.
--- NOTE | 2020-06-27 21:20 | NUR ---
CHECKED ON PT. PT IS LYING IN BED. IV WAS FLUSHED, PATENT, ASYMPTOMATIC, INTACT. PT IS IN STABLE CONDITION.
--- NOTE | 2020-06-27 23:55 | NUR ---
PT IS SLEEPING. NO SIGNS OF DISTRESS NOTED.
[2020-06-28] VITALS: BP 139/62
--- NOTE | 2020-06-28 01:18 | NUR ---
BATTERIES CHANGED ON HEART MONITOR. PT IS IN STABLE CONDITION.
--- NOTE | 2020-06-28 03:25 | NUR ---
PT IS SLEEPING. NO SIGNS OF DISTRESS.
[2020-06-28 04:00] VITALS: BP 124/71
--- NOTE | 2020-06-28 05:06 | NUR ---
PT IS SLEEPING. VISIBLE CHEST RISE NOTED.
[2020-06-28 05:26] LABS: BASOPHILS # (AUTO) 0.1 K/uL (0.00-0.22); BASOPHILS % (AUTO) 1.2 % (0.0-2.0); EOSINOPHILS # (AUTO) 0.3 K/uL (0-0.4); EOSINOPHILS % (AUTO) 4.1 % (0.0-4.0); HEMATOCRIT 36.2 % (36-48); HEMOGLOBIN 12.2 g/dL (12.0-16.0); LYMPHOCYTES # (AUTO) 1.9 K/uL (2.5-16.5); LYMPHOCYTES % (AUTO) 23.7 % (20.5-51.1); MEAN CORPUSCULAR HEMOGLOBIN 30 pg (27-31); MEAN CORPUSCULAR HGB CONC 34 g/dL (33-37); MEAN CORPUSCULAR VOLUME 88.4 fL (80-94); MONOCYTES # (AUTO) 0.9 K/uL (0.8-1.0); MONOCYTES % (AUTO) 11.3 % (1.7-9.3); NEUTROPHILS # (AUTO) 4.8 K/uL (1.8-7.7); NEUTROPHILS % (AUTO) 59.7 % (42.2-75.2); PLATELET COUNT (AUTO) 375 K/uL (140-450); RED CELL DISTRIBUTION WIDTH 13.3 % (11.6-13.7)
[2020-06-28 05:49] LABS: ANION GAP 12.3 (8-16); CARBON DIOXIDE 24.7 mmol/L (21-32); CHLORIDE 104 mmol/L (98-107); GLUCOSE 109 mg/dL (74-106); SODIUM SERUM 137 mmol/L (136-145); UREA NITROGEN, BLOOD 9 mg/dL (7-18)
[2020-06-28 05:55] LABS: MAGNESIUM 2.2 mg/dL (1.8-2.4); PHOSPHORUS 3.7 mg/dL (2.5-4.9)
[2020-06-28 06:01] LABS: PROTHROMBIN TIME 10.2 secs (10.8-13.4)
--- NOTE | 2020-06-28 07:30 | NUR ---
RECEIVED REPORT FROM NIGHT NURSE FOR CONTINUITY OF CARE, PT IS STABLE, PT UP OUT OF BED USING THE BATHROOM, PT IS MANDARIN SPEAKING, INTRODUCE SELF, PT HAS RIGHT AC 20 G SALINE LOCK, SKIN INTACT, NO SIGNS OF DISTRESS NOTED, RESPIRATIONS ARE EVEN AND UNLABORED ON ROOM AIR, WILL CONTINUE TO MONITOR.
[2020-06-28 08:00] VITALS: BP 140/66
--- NOTE | 2020-06-28 09:00 | NUR ---
PT SITTING IN BED TALKING ON PHONE, NO SIGNS OF DISTRESS NOTED, RESPIRATIONS ARE EVEN AND UNLABORED ON ROOM AIR, CALL LIGHT WITHIN REACH.
--- NOTE | 2020-06-28 11:00 | NUR ---
PT SITTING IN ROOM RESTING, NO SIGNS OF DISTRESS NOTED, RESPIRATIONS ARE EVEN AND UNLABORED ON ROOM AIR, CALL LIGHT WITHIN REACH, WILL CONTINUE TO MONITOR.
[2020-06-28 12:00] VITALS: BP 138/67
--- NOTE | 2020-06-28 13:15 | NUR ---
THORACENTESIS FINISHED, OUTPUT WAS 1.8L, PT IS STABLE, WILL CONTINUE TO MONITOR.
[2020-06-28] MEDS ORDERED: AMOX-999 PO (14:08)
[2020-06-28 16:00] VITALS: BP 95/60
[2020-06-28] MEDS: LEVOFLOXACIN 500 MG/D5W PREMIX 100 ML IV SCH (16:09)
--- NOTE | 2020-06-28 16:13 | NUR ---
ADMINISTERED SCHEDULED MEDICATION, MEDICATION EDUCATION PROVIDED, PT VERBALIZED UNDERSTANDING, PT TOLERATED WELL, PT IS STABLE, NO SIGNS OF DISTRESS NOTED, CALL LIGHT WITHIN REACH.
--- NOTE | 2020-06-28 18:05 | NUR ---
PT DISCHARGED HOME, IV REMOVED, PNA AND FLU UP TO DATE, GAVE DISCHARGE INSTRUCTIONS TO PT RAIN, PT IS STABLE.
[2020-06-28 18:26] LABS: APPEARANCE,UNSPUN,BODY FLUID SLIGHTLY CLOUDY (CLEAR); COLOR,BODY FLUID ORANGE (LT YELLOW)
[2020-06-28 19:01] LABS: GLUCOSE,BODY FLUID 139 mg/dL
[2020-06-28 21:02] LABS: SPECIMENTYPE,BODY FLUID PLEURAL
[2020-06-28 21:03] LABS: RBC, BODY FLUID 10694 /cu. mm.; TOTAL VOLUME,BODY FLUID 1750 mL; WBC, BODY FLUID 0 /cu. mm.
[2020-06-28 21:39] LABS: APPEARANCE,SPUN,BODY FLUID CLEAR (CLEAR)
== END 2020-06-28 18:38 | disposition home or self-care (01) ==
LOC: MED 11:06 → MTU 15:23
PROVIDERS: ADMIT Hospitalist; ATTEND Hospitalist
DX: J90 Pleural effusion, not elsewhere classified (principal); Z20.828 Contact with and (suspected) exposure to other viral communicable diseases; E78.5 Hyperlipidemia, unspecified; R79.89 Other specified abnormal findings of blood chemistry; I10 Essential (primary) hypertension; F41.9 Anxiety disorder, unspecified; F32.9 Major depressive disorder, single episode, unspecified; Z95.0 Presence of cardiac pacemaker; Z79.82 Long term (current) use of aspirin; Z79.899 Other long term (current) drug therapy
CPT/HCPCS: 36415; 71045; 71250; 76604; 76942; 80048; 80053; 81003; 82945; 83605; 83735; 83880; 84100; 84157; 84484; 85025; 85610; 85730; 87040; 87070; 87075; 87081; 87205; 87426; 89051; 93005; 96365; 96366; 96372; 99285; G0378; J1650; J1956; J2001; Q0092

== ENCOUNTER 2020-09-13 09:29 | Day surgery (SDC) | payer OTHER, SELFPAY ==
[~2020-09-13 09:29] MED LIST changes: +ASPI-1205 PO; +CLIN300C7 PO; +ESCI5TAB PO
[2020-09-13] MEDS ORDERED: LIDOCAINE 1% 500 MG/50 ML VIAL ONE (10:44)
[2020-09-13] MEDS ORDERED: MIDAZOLAM 2 MG/2 ML VIAL ONE (11:04)
[2020-09-13] MEDS ORDERED: fentaNYL citrate 0.05 MG/ML VIAL ONE (11:04)
== END 2020-09-13 12:10 | disposition home or self-care (01) ==
LOC: MDS 09:29 → MFCC 09:31 → MDS 12:10
PROVIDERS: ATTEND Radiology Diagnostic Radiology
DX: J90 Pleural effusion, not elsewhere classified (principal)
CPT/HCPCS: 32552; 71045; 76000; 87426; J2001; J2250; J3010

== ENCOUNTER 2023-05-05 01:40 | Observation (INO) | payer OTHER ==
[2023-05-05] VITALS (9 sets, daily range): BP systolic 112–174; BP diastolic 63–83; PULSE 60–112; RESP 15–18; TEMP 96.6–98.1; O2SAT 94–99
[~2023-05-05] VITALS: Ht 152.4 cm; Wt 45.4 kg
[~2023-05-05 01:40] MED LIST changes: -CLIN300C7 PO; +CLIN300C73 PO
[2023-05-05 03:03] LABS: BASOPHILS % (AUTO) 0.9 % (0.0-2.0); EOSINOPHILS # (AUTO) 0.1 K/uL (0-0.4); EOSINOPHILS % (AUTO) 2.4 % (0.0-4.0); HEMATOCRIT 29.1 % (36-48); HEMOGLOBIN 9.9 g/dL (12.0-16.0); LYMPHOCYTES # (AUTO) 0.9 K/uL (2.5-16.5); LYMPHOCYTES % (AUTO) 19.3 % (20.5-51.1); MEAN CORPUSCULAR HEMOGLOBIN 31 pg (27-31); MEAN CORPUSCULAR HGB CONC 34 g/dL (33-37); MEAN CORPUSCULAR VOLUME 90.1 fL (80-94); MONOCYTES # (AUTO) 0.6 K/uL (0.8-1.0); MONOCYTES % (AUTO) 12.7 % (1.7-9.3); NEUTROPHILS # (AUTO) 2.9 K/uL (1.8-7.7); NEUTROPHILS % (AUTO) 64.7 % (42.2-75.2); PLATELET COUNT (AUTO) 155 K/uL (140-450); RED BLOOD CELL COUNT(AUTO) 3.23 MIL/uL (4.20-5.40); RED CELL DISTRIBUTION WIDTH 14.3 % (11.6-13.7); WHITE BLOOD COUNT (AUTO) 4.4 K/uL (4.8-10.8)
[2023-05-05 03:17] LABS: ALANINE AMINOTRANSFERASE 23 U/L (12-78); ALBUMIN 3.1 g/dL (3.4-5.0); ALKALINE PHOSPHATASE 36 U/L (50-136); ANION GAP 7.6 (8-16); ASPARTATE AMINOTRANSFERASE 19 U/L (15-37); CALCIUM 8.3 mg/dL (8.5-10.1); CARBON DIOXIDE 28.1 mmol/L (21-32); CHLORIDE 107 mmol/L (98-107); CREATININE 1.1 mg/dL (0.6-1.3); GLUCOSE 109 mg/dL (74-106); LIPASE 238 U/L (73-393); POTASSIUM 4.7 mmol/L (3.5-5.1); SODIUM SERUM 138 mmol/L (136-145); TOTAL BILIRUBIN 0.2 mg/dL (0.0-1.0); TOTAL PROTEIN, SERUM 6.6 g/dL (6.4-8.2); UREA NITROGEN, BLOOD 26 mg/dL (7-18)
[2023-05-05] MEDS ORDERED: ACETAMINOPHEN 325 MG TAB PO PRN (03:50)
[2023-05-05] MEDS ORDERED: POTASSIUM CHLORIDE 10 MEQ TABER PO PRN (03:50)
[2023-05-05] MEDS ORDERED: HYDROcodone/APAP 5/325 MG 1 TAB TAB PO PRN (03:50)
[2023-05-05] MEDS ORDERED: MORPHINE SULFATE 2 MG/ML SYR IVP PRN (03:50)
[2023-05-05] MEDS ORDERED: MAGNESIUM OXIDE 400 MG TAB PO PRN (03:50)
[2023-05-05] MEDS ORDERED: KCL 20 MEQ IN 100 mL PREMIX 200 ML IV PRN (03:50)
[2023-05-05] MEDS ORDERED: MAG SULF 2000 MG/WATER PREMIX 50 ML IV PRN (03:50)
[2023-05-05 03:52] LABS: APPEARANCE,URINE CLEAR (CLEAR); BILIRUBIN,URINE NEGATIVE (NEGATIVE); BLOOD, URINE NEGATIVE (NEGATIVE); COLOR,URINE YELLOW (YELLOW); LEUKOCYTE ESTERASE ,URINE 1+ (NEGATIVE); NITRITE, URINE NEGATIVE (NEGATIVE); PROTEIN,URINE NEGATIVE (NEGATIVE); UGLUCOSE NEGATIVE (NEGATIVE); UROBILINOGEN,URINE 0.2 EU/dL (0.2 - 1)
[2023-05-05] MEDS ORDERED: METO25TE71 PO (03:56)
[2023-05-05 03:58] LABS: RBC,URINE 0-5 /HPF (0-5); WBC,URINE 20-60 /HPF (0-5)
[2023-05-05 03:59] LABS: BACTERIA,URINE 10-30 (MOD) /HPF (None Seen); MUCUS,URINE 1+ /LPF (None Seen); SQUAMOUS EPITHELIAL CELL,UR 0-3 (FEW) /LPF (0-3 (FEW))
[2023-05-05] MEDS ORDERED: cefTRIAXone 1,000 MG VIAL ONE (05:22)
[2023-05-05 05:24] LABS: LACTIC ACID 0.7 mmol/L (0.4-2.0)
[2023-05-05] MEDS ORDERED: OSIM40TA PO (20:15)
[2023-05-05] MEDS ORDERED: ZOLPIDEM 5 MG TAB PO PRN (20:35)
[2023-05-05] MEDS: NACL 0.9% 500 ML IV SCH (21:07)
[2023-05-06] VITALS (10 sets, daily range): BP systolic 129–149; BP diastolic 62–74; PULSE 58–61; RESP 16–18; TEMP 96.6–97.5; O2SAT 96–100
[2023-05-06] MEDS: NACL 0.9% 500 ML IV SCH ×2 (02:34→09:07)
[2023-05-06 07:20] LABS: EOSINOPHILS # (AUTO) 0.1 K/uL (0-0.4); EOSINOPHILS % (AUTO) 3.5 % (0.0-4.0); HEMATOCRIT 31.8 % (36-48); HEMOGLOBIN 10.8 g/dL (12.0-16.0); LYMPHOCYTES # (AUTO) 1.1 K/uL (2.5-16.5); LYMPHOCYTES % (AUTO) 29.6 % (20.5-51.1); MEAN CORPUSCULAR HEMOGLOBIN 31 pg (27-31); MEAN CORPUSCULAR HGB CONC 34 g/dL (33-37); MEAN CORPUSCULAR VOLUME 90.5 fL (80-94); MONOCYTES # (AUTO) 0.5 K/uL (0.8-1.0); MONOCYTES % (AUTO) 12.5 % (1.7-9.3); NEUTROPHILS % (AUTO) 53.4 % (42.2-75.2); PLATELET COUNT (AUTO) 179 K/uL (140-450); RED BLOOD CELL COUNT(AUTO) 3.51 MIL/uL (4.20-5.40); RED CELL DISTRIBUTION WIDTH 14.4 % (11.6-13.7); WHITE BLOOD COUNT (AUTO) 3.7 K/uL (4.8-10.8)
[2023-05-06 07:33] LABS: ALANINE AMINOTRANSFERASE 22 U/L (12-78); ALBUMIN 3.3 g/dL (3.4-5.0); ALKALINE PHOSPHATASE 39 U/L (50-136); ANION GAP 12.4 (8-16); ASPARTATE AMINOTRANSFERASE 17 U/L (15-37); CALCIUM 8.5 mg/dL (8.5-10.1); CARBON DIOXIDE 23.3 mmol/L (21-32); CHLORIDE 103 mmol/L (98-107); CREATININE 1.1 mg/dL (0.6-1.3); GLUCOSE 98 mg/dL (74-106); MAGNESIUM 2.2 mg/dL (1.8-2.4); POTASSIUM 3.7 mmol/L (3.5-5.1); SODIUM SERUM 135 mmol/L (136-145); TOTAL BILIRUBIN 0.5 mg/dL (0.0-1.0); TOTAL PROTEIN, SERUM 6.9 g/dL (6.4-8.2); UREA NITROGEN, BLOOD 16 mg/dL (7-18)
[2023-05-06] MEDS ORDERED: ISOSORBIDE MONONITRATE 30 MG TABER PO SCH (09:00)
[2023-05-06] MEDS ORDERED: ATORVASTATIN 20 MG TAB PO SCH (09:00)
[2023-05-06] MEDS ORDERED: ASPIRIN 325 MG TAB PO SCH (09:00)
[2023-05-06] MEDS ORDERED: ESCITALOPRAM 20 MG TAB PO SCH (09:00)
[2023-05-06] MEDS ORDERED: NACL 0.9% 1,000 ML IV SCH (12:25)
[2023-05-06] MEDS ORDERED: NITR100C7 PO (14:53)
[2023-05-07] MEDS ORDERED: ECOTRIN 81 MG TABEC PO SCH (09:00)
== END 2023-05-06 16:00 | disposition home or self-care (01) ==
LOC: MED 01:40 → MTU 03:50
PROVIDERS: ADMIT Internal Medicine; ATTEND Internal Medicine
DX: R55 Syncope and collapse (principal); R07.89 Other chest pain; S09.90XA Unspecified injury of head, initial encounter; I21.4 Non-ST elevation (NSTEMI) myocardial infarction; I11.0 Hypertensive heart disease with heart failure; I50.9 Heart failure, unspecified; E78.5 Hyperlipidemia, unspecified; N39.0 Urinary tract infection, site not specified; I48.91 Unspecified atrial fibrillation; F03.90 Unspecified dementia, unspecified severity, without behavioral disturbance, psychotic disturbance, mood disturbance, and anxiety; Z85.118 Personal history of other malignant neoplasm of bronchus and lung; Z79.82 Long term (current) use of aspirin; Z79.899 Other long term (current) drug therapy; W19.XXXA Unspecified fall, initial encounter; Y93.89 Activity, other specified; Y92.89 Other specified places as the place of occurrence of the external cause; Y99.8 Other external cause status
CPT/HCPCS: 36415; 70450; 71045; 73110; 80053; 81001; 83605; 83690; 83735; 84484; 85025; 87040; 87081; 87086; 93005; 93307; 96361; 96365; 96366; 96372; 97116; 97163; 99285; C8929; G0378; J0696; J1644; J7060; Q0092